=== PATIENT | male | born 1980 | race Caucasian/White ===

== ENCOUNTER → 2017-03-10 | Outpatient (CLI) | payer OTHER ==
--- NOTE | 2017-03-10 17:02 | REP ---
RIGHT FINGERS, FOUR VIEWS: HISTORY: Contusion. There is no acute fracture or dislocation. The joint spaces are normal in appearance. There is irregularity of the soft tissue overlying the distal phalange of the third digit. This may represent a laceration. IMPRESSION: There is no acute fracture or dislocation. Signed by Casey Shields MD 03/10/2017 05:04 P
== END ==
LOC: M ADAMS 14:26
PROVIDERS: ATTEND Physician Assistant Medical
DX: S60.131A Contusion of right middle finger with damage to nail, initial encounter (principal); X58.XXXA Exposure to other specified factors, initial encounter; Y92.9 Unspecified place or not applicable; Y93.9 Activity, unspecified; Y99.9 Unspecified external cause status

== ENCOUNTER 2020-04-01 12:08 | Emergency (ER) | payer OTHER ==
[~2020-04-01] VITALS: Ht 177.8 cm; Wt 79.0 kg
[~2020-04-01 12:08] MED LIST: PROT1TAB2 PO; SUCR1SS PO; ZOFR4TAB14 PO
[2020-04-01] MEDS ORDERED: ATROPINE SULF 0.4 MG/ML 1ML VIAL (J0461) IV STA (12:25)
[2020-04-01] MEDS ORDERED: GI COCKTAIL 50ML BTL(HYOSCYAMINE/MAALOX/LIDOCAINE VISCOUS)(1:3:1) PO ONE (12:30)
[2020-04-01] MEDS ORDERED: NS 1,000 ML IV ONE (12:30)
[2020-04-01] MEDS ORDERED: PANTOPRAZOLE 40MG VIAL (C9113 PER 1) IV ONE (12:30)
[2020-04-01 12:34] LABS: BASO % 0.2 % (0.0-1.0); HEMATOCRIT 47.2 % (42.0-52.0); HEMOGLOBIN 15.3 g/dl (13.5-17.5); LYMPH # 1.2 10^3/uL (1.5-5.0); LYMPH % 7.4 % (24.0-44.0); MEAN CORPUSCULAR HEMOGLOBIN 30.7 pg (27.0-33.0); MEAN CORPUSCULAR HGB CONC 32.4 g/dl (32.0-36.5); MEAN CORPUSCULAR VOLUME 94.6 fl (80.0-96.0); MONO # 0.6 10^3/uL (0.0-0.8); MONO % 3.7 % (0.0-5.0); NEUTROPHILS # 13.8 10^3/uL (1.5-8.5); NEUTROPHILS % 88.1 % (36.0-66.0); PLATELET COUNT, AUTOMATED 253 10^3/uL (150-450); RED BLOOD COUNT 4.99 10^6/uL (4.30-6.10); WHITE BLOOD COUNT 15.7 10^3/uL (4.0-10.0)
[2020-04-01 12:47] LABS: INR 1.04; PARTIAL THROMBOPLASTIN TIME 28.5 SECONDS (25.0-38.4); PROTHROMBIN TIME 13.3 SECONDS (11.8-14.0)
[2020-04-01] MEDS: GASTROGRAFIN SOLUTION 30ML PO SCH ×2 (12:51→13:25)
[2020-04-01 13:02] LABS: ALBUMIN 4.5 GM/DL (3.2-5.2); ALT/SGPT 45 U/L (12-78); BILIRUBIN,DIRECT 0.1 MG/DL (0.0-0.2); BILIRUBIN,TOTAL 0.3 MG/DL (0.2-1.0); BLOOD UREA NITROGEN 18 MG/DL (7-18); CALCIUM LEVEL 9.3 MG/DL (8.5-10.1); CARBON DIOXIDE LEVEL 27 MEQ/L (21-32); CHLORIDE LEVEL 106 MEQ/L (98-107); CK-MB VALUE MASS 1.7 NG/ML (<3.6); CPK CREATINE PHOSPHOKINASE 122 U/L (39-308); CREATININE FOR GFR 0.99 MG/DL (0.70-1.30); GLOMERULAR FILTRATION RATE > 60.0 (>60); GLUCOSE, FASTING 133 MG/DL (70-100); LIPASE 68 U/L (73-393); MB/CK RELATIVE INDEX 1.39 (< OR =4); POTASSIUM SERUM 4.6 MEQ/L (3.5-5.1); SODIUM LEVEL 141 MEQ/L (136-145); TOTAL PROTEIN 7.6 GM/DL (6.4-8.2); TROPONIN I < 0.02 NG/ML (< 0.10)
[2020-04-01] MEDS ORDERED: ISOVUE-370 76% 100ML VIAL As Ordered ONE (14:19)
[2020-04-01] MEDS ORDERED: MORPHINE 4 MG/ML 1ML VIAL/SYRINGE (J2270) IV ONE (14:45)
[2020-04-01] MEDS ORDERED: SUCRALFATE SUSP 1GM/10ML UD PO ONE (14:45)
--- NOTE | 2020-04-01 14:49 | REP ---
Clinical: Acute epigastric pain. Technique: Axial contrast enhanced images from the lung bases to the pubic symphysis using oral (per protocol) and 100 ml Isovue 370 intravenous contrast material coronal and sagittal re-formations. Findings: Lung bases demonstrate small 4 mm noncalcified nodule in the right middle lobe (image 4). Liver, spleen, pancreas, gallbladder, bilateral adrenal glands and right kidney are normal. Complete atrophic appearance to the left kidney appears chronic. The enteric system is without obstruction or acute inflammatory process. Normal terminal ileum and appendix are identified in the right lower quadrant. Few scattered sigmoid diverticula noted without acute diverticulitis. Pelvis demonstrates normal bladder and age appropriate prostate/seminal vesicles. No ascites. No free air. No adenopathy. Abdominal aorta and vasculature are relatively normal. Musculoskeletal structures without acute osseous abnormality. Impression: 1. Chronic atrophic appearance to the left kidney with mild hydroureter possibly related to chronic congenital reflux disease or prior chronic obstruction. 2. No acute abdominopelvic pathology appreciated. 3. 4 mm nodule in the right middle lobe. Consider short-term chest CT follow-up. Electronically Signed by Arnoldo Vitale MD 04/01/2020 02:40 P
[2020-04-01] MEDS ORDERED: PROT1TAB2 PO (15:13)
[2020-04-01 15:30] VITALS: BP 175/88
--- NOTE | 2020-04-01 21:10 | ECGEPIP ---
[facility] - ED Test Date: 2020-04-01 Pat Name: KENYON STOVALL Department: Room: - Gender: Male Ems Instructor: golden : 1980 Requested By: MAGUE Almaguer Order Number: [id number] Reading MD: Hina Moses Measurements Intervals [place] Rate: 33 P: 55 SC: 169 QRS: 39 QRSD: 92 T: 48 QT: 456 QTc: 338 Interpretive Statements SINUS BRADYCARDIA INCOMPLETE RIGHT BUNDLE BRANCH BLOCK SIMILAR 09/15/17 Electronically Signed on 04-01-2020 21:09:35 EDT by Hina Moses
--- NOTE | 2020-04-02 14:47 | ED PDOC ---
Post-Departure Follow-Up [facility] faxed formal report of ct abd/p for fu Robert Todd MD April 02, 2020 14:47
[2020-04-11] MEDS ORDERED: ANOR1AER INH (12:14)
== END 2020-04-01 15:35 | disposition home or self-care (01) ==
LOC: M ED 12:08
DX: R10.13 Epigastric pain (principal); N13.4 Hydroureter; N26.9 Renal sclerosis, unspecified; R91.1 Solitary pulmonary nodule; R00.1 Bradycardia, unspecified; R19.7 Diarrhea, unspecified; R11.2 Nausea with vomiting, unspecified; K25.9 Gastric ulcer, unspecified as acute or chronic, without hemorrhage or perforation; K21.9 Gastro-esophageal reflux disease without esophagitis; K29.70 Gastritis, unspecified, without bleeding; F17.200 Nicotine dependence, unspecified, uncomplicated
CPT/HCPCS: 74177; 80047; 80048; 80076; 82550; 82553; 83690; 85025; 85610; 85730; 93005; 93041; 96374; 96375; 99285; C9113; J0461; J2270; Q9963; Q9967

== ENCOUNTER → 2020-04-15 | Outpatient (CLI) | payer OTHER ==
[~2020-04-15] MED LIST changes: +ANOR1AER INH
== END ==
LOC: M LABSMTC 09:51
PROVIDERS: ATTEND Anesthesiology
DX: Z01.818 Encounter for other preprocedural examination (principal); Z11.59 Encounter for screening for other viral diseases
CPT/HCPCS: C9803; U0003

== ENCOUNTER 2020-04-18 09:32 | Day surgery (SDC) | payer OTHER ==
[~2020-04-18] VITALS: Ht 177.8 cm; Wt 78.8 kg
[~2020-04-18 09:32] MED LIST changes: +fentaNYL 100 MCG/2 ML INJECTION (J3010) As Ordered ONE
[2020-04-18] MEDS ORDERED: NS 1,000 ML IV ONE (10:45)
[2020-04-18] MEDS ORDERED: propofoL 200 MG/20 ML VIAL As Ordered ONE (11:02)
[2020-04-18] MEDS ORDERED: LIDOCAINE 2% 100MG/5ML SDV (FOR ANES.) As Ordered ONE (11:02)
--- NOTE | 2020-04-18 11:23 | ROOR ---
Patient Name: Montrell Castillo Procedure Date: 04/18/2020 11:05 AM Date of : 1980 Age: 40 Room: [facility] Gender: Male Note Status: Finalized Procedure: Upper GI endoscopy Indications: Epigastric abdominal pain Providers: Binu Schaffer MD Referring MD: 1. No Referring Physician 1. No Referring Physician, Admin., Binu Schaffer MD Requesting Provider: Medicines: Monitored Anesthesia Care Complications: No immediate complications. Procedure: Pre-Anesthesia Assessment: - Prior to the procedure, a History and Physical was performed, and patient medications and allergies were reviewed. The patient is competent. The risks and benefits of the procedure and the sedation options and risks were discussed with the patient. All questions were answered and informed consent was obtained. Patient identification and proposed procedure were verified by the physician, the nurse and the lathe scalper operator in the endoscopy suite. Mental Status Examination: alert and oriented. Airway Examination: normal oropharyngeal airway and neck mobility. Respiratory Examination: clear to auscultation. CV Examination: normal. Prophylactic Antibiotics: The patient does not require prophylactic antibiotics. Prior Anticoagulants: The patient has taken no previous anticoagulant or antiplatelet agents. ASA Grade Assessment: II - A patient with mild systemic disease. After reviewing the risks and benefits, the patient was deemed in satisfactory condition to undergo the procedure. The anesthesia plan was to use monitored anesthesia care (MAC). Immediately prior to administration of medications, the patient was re-assessed for adequacy to receive sedatives. The heart rate, respiratory rate, oxygen saturations, blood pressure, adequacy of pulmonary ventilation, and response to care were monitored throughout the procedure. The physical status of the patient was re-assessed after the procedure. The Endoscope was introduced through the mouth, and advanced to the second part of duodenum. The upper GI endoscopy was accomplished without difficulty. The patient tolerated the procedure well. Findings: The examined esophagus was normal. Localized mild inflammation characterized by congestion (edema) was found in the cardia. Biopsies were taken with a cold forceps for histology. The examined duodenum was normal. Impression: - Normal esophagus. - Acute gastritis. Biopsied. - Normal examined duodenum. Recommendation: - Await pathology results. - Return to my office in 2 weeks. - Use sucralfate tablets 1 gram PO BID for 4 weeks. Binu Schaffer MD Binu Schaffer MD 04/18/2020 11:22:47 AM Electronically signed by Binu Schaffer MD Number of Addenda: 0 Note Initiated On: 04/18/2020 11:05 AM Estimated Blood Loss: Estimated blood loss was minimal.
[2020-04-18 11:44] VITALS: BP 125/87
== END 2020-04-18 11:46 | disposition home or self-care (01) ==
LOC: M OPP 09:32
PROVIDERS: ATTEND Surgery
DX: K29.00 Acute gastritis without bleeding (principal); R10.13 Epigastric pain; Z79.899 Other long term (current) drug therapy; F17.210 Nicotine dependence, cigarettes, uncomplicated
CPT/HCPCS: 43239; 88305; J3010

== ENCOUNTER → 2020-04-27 | Outpatient (CLI) | payer OTHER ==
[~2020-04-27] MED LIST changes: -fentaNYL 100 MCG/2 ML INJECTION (J3010) As Ordered ONE
== END ==
LOC: M PLALAB 09:35
PROVIDERS: ATTEND Family Medicine
DX: Z13.1 Encounter for screening for diabetes mellitus (principal); Z13.220 Encounter for screening for lipoid disorders

== ENCOUNTER → 2020-04-27 | Outpatient (REF) | payer OTHER ==
[2020-04-27 11:17] LABS: CHOLESTEROL RISK RATIO 3.978 (<5)
[2020-04-27 11:46] LABS: HEMOGLOBIN A1c 5.5 %
== END ==
LOC: M SFHCPLAZ 09:28
PROVIDERS: ATTEND Family Medicine
DX: Z13.1 Encounter for screening for diabetes mellitus (principal); Z13.220 Encounter for screening for lipoid disorders

== ENCOUNTER → 2020-05-01 | Outpatient (CLI) | payer OTHER ==
--- NOTE | 2020-05-01 08:32 | REP ---
Right upper quadrant sonography: History: Epigastric pain. Comparison study: Comparison CT study April 01, 2020. Findings: Scanning through the right upper quadrant of the abdomen demonstrates a normal sized, thin-walled gallbladder without evidence of stone or polyp. Common bile duct is normal measuring 0.5 cm in greatest diameter. No focal liver lesion is seen. Liver size is normal. No pancreatic abnormality is observed. No right renal abnormality is seen. There is no evidence of ascites. The right kidney measures 13.2 x 6.2 x 6.4 cm. Impression: Negative right upper quadrant sonography. Electronically Signed by Williams Jin MD 05/01/2020 08:23 A
== END ==
LOC: M RAD 06:24
PROVIDERS: ATTEND Surgery
DX: R10.13 Epigastric pain (principal)

== ENCOUNTER → 2020-05-03 | Outpatient (CLI) | payer OTHER ==
--- NOTE | 2020-05-03 15:40 | REP ---
REASON: Followup right middle lobe nodules seen in lung base imaging during abdominal and pelvic CT scanning 04/01/2020. There is no mediastinal or hilar adenopathy There are no pleural or pericardial effusions. There is no change in the appearance of the imaged upper abdomen. The imaged osseous structures are within normal limits. Evaluation of the lung rodriguez shows a 5 mm sized nodule in the right lower lobe not imaged on the prior lung base images. There are two nodules in the right middle lobe, one measures 6 mm and the other measures 3 mm. There is a 7 mm sized nodule in the left lower lobe. Superior to this, there is a 4 mm sized nodule. There is a 5 mm sized nodule in the apical posterior segment of the left upper lobe. There is a 5 mm sized nodule in the lingula. Between the aforementioned left lower lobe nodules, there is an additional 3 mm sized nodule. IMPRESSION: There are bilateral upper lobe peripheral pleural blebs. IMPRESSION: 1. Multiple pulmonary nodules as described above. Recommendation for followup will be based on the largest nodule as per the revised Fleischner Society criteria. Recommendation is for a 3-month followup examination. 2. There are some chronic lung field changes as described above. Electronically Signed by Jan Urena DO 05/03/2020 05:05 P
== END ==
LOC: M RAD 14:22
PROVIDERS: ATTEND Internal Medicine Pulmonary Disease
DX: R91.8 Other nonspecific abnormal finding of lung field (principal)

== ENCOUNTER → 2020-08-24 | Outpatient (CLI) | payer OTHER ==
--- NOTE | 2020-08-29 07:59 | REP ---
CT CHEST WITHOUT CONTRAST HISTORY: Other nonspecific abnormal finding of lung field. COMPARISON: Chest CT study 05/03/2020. CT FINDINGS: There are scattered bilateral subcentimeter pulmonary nodules. The nodule previously measured at 7 mm in the left lower lobe appears actually less prominent. There is an adjacent vessel 4 mm. In any event, there is no evidence of progression in this or any of the other nodules. No new mass or infiltrate is seen. There is some vascular calcification. No hilar or mediastinal mass or adenopathy is observed. There is profound atrophy of the left kidney and it contains a couple of calcifications. There are normal adrenal glands bilaterally. IMPRESSION: Lung-RADS Category [address] study suggested in one year. MTDD
== END ==
LOC: M RAD 09:20
PROVIDERS: ATTEND Internal Medicine Pulmonary Disease
DX: R91.8 Other nonspecific abnormal finding of lung field (principal)

== ENCOUNTER → 2020-11-30 | Outpatient (CLI) | payer OTHER ==
--- NOTE | 2020-11-30 09:31 | REPPI ---
INDICATION: ACUTE RIGHT SIDED LOW BACK PAIN WITHOUT SCIATICA COMPARISON: None. TECHNIQUE: AP, lateral, flexion/extension, bilateral oblique, and coned-down views. FINDINGS: Alignment and lordosis maintained. No acute fracture/compression injury or subluxation. Early moderate degenerative changes at L5-S1 include endplate sclerosis, marginal spurring and facet arthropathy with disc space narrowing. Foraminal narrowing at the L5-S1 level cannot be excluded as well. Mild age-related changes noted throughout the remainder of the visualized lumbar spine. No evidence for spondylolysis or spondylolisthesis. IMPRESSION: Moderate degenerative changes at the L5-S1 level. <Electronically signed by Arnoldo Vitale > 11/30/20 [id number]
== END ==
LOC: M PLARAD 08:24
PROVIDERS: ATTEND Family Medicine
DX: M51.37 Other intervertebral disc degeneration, lumbosacral region (principal)

== ENCOUNTER → 2021-02-15 | Outpatient (CLI) | payer OTHER ==
--- NOTE | 2021-02-15 13:46 | REP ---
INDICATION: ABN FINDING OF LUNG. COMPARISON: 08/24/2020, 05/03/2020 CT. TECHNIQUE: Noncontrast scanning through the chest with coronal and sagittal reconstructions. FINDINGS: Is a stable 5 mm nodule lateral basal segment right lower lobe on image 60. 5 mm nodule seen on image 81 in the medial segment right middle lobe is essentially unchanged. Smaller 3 mm nodule noted on the 05/03/2020 study cannot be seen. There is a 4 mm nodule in the left upper lung zone on image 62 unchanged. 3 mm nodule in the superior segment of the left lower lobe on image 62 is again seen. I do not see other or new nodules, acute infiltrate, pleural thickening or calcified pleural plaque. No effusion or dense consolidation. No pneumothorax or pneumomediastinum. Heart is not enlarged. The aorta is without aneurysm. There is no pathologic sized adenopathy in the mediastinum. The krishna, axilla and supraclavicular region show no pathologic size nodes. Tracheal airway intact. The sternum, manubrium, clavicles, AC joints, glenohumeral joints, ribs, scapulae and spine are without fracture or acute finding there marginal osteophytes throughout the upper to mid/lower thoracic spine. No compression deformity or destructive lesions. Upper abdomen shows profound atrophy of the left kidney and compensatory hypertrophy of the right unchanged. Stomach filled with a recent meal and contraction of the gallbladder noted. Adrenal glands normal. No hiatal hernia. IMPRESSION: 1. Multiple bilateral small pulmonary nodules, stable. All of them are the same size or a little smaller. No new nodules or other new findings in the lung rodriguez. The heart, mediastinal and hilar contours and other structures grossly unremarkable in the chest. 2. Severe chronic renal atrophy on the left with compensatory hypertrophy of the right kidney. Follow-up recommended as clinically indicated. <Electronically signed by Adiel Lentz > 02/15/21 1547
== END ==
LOC: M RAD 10:22
PROVIDERS: ATTEND Internal Medicine Pulmonary Disease
DX: R91.8 Other nonspecific abnormal finding of lung field (principal)

== ENCOUNTER → 2021-03-12 | Outpatient (CLI) | payer OTHER ==
--- NOTE | 2021-03-12 13:49 | REPPI ---
INDICATION: BACK PAIN WITH SCIATICA. COMPARISON: 11/30/2020. TECHNIQUE: Five views lumbosacral spine. FINDINGS: There is no compression fracture or malalignment. There is mild spurring diffusely. There is mild disc space narrowing at L4-5 with mild subchondral sclerosis. There is moderate disc space narrowing at L5-S1 with mild subchondral sclerosis. There is sclerosis and spurring at the facets of L5-S1. The posterior elements are intact. IMPRESSION: Stable arthritic changes. No compression fracture or malalignment. <Electronically signed by Michael Youngblood > 03/12/21 [id number]
== END ==
LOC: M PLAIMG 12:18
PROVIDERS: ATTEND Student in an Organized Health Care Education/Training Program
DX: M54.40 Lumbago with sciatica, unspecified side (principal); M77.8 Other enthesopathies, not elsewhere classified; G95.89 Other specified diseases of spinal cord

== ENCOUNTER → 2021-04-19 | Outpatient (CLI) | payer OTHER ==
--- NOTE | 2021-04-19 16:25 | REPVR ---
PROCEDURE INFORMATION: Exam: MR Lumbar Spine Without Contrast Exam date and time: 04/19/2021 12:46 PM Age: 41 years old Clinical indication: Pain; Lumbago with sciatica; Left; Additional info: Back pain lumbar region w/ sciatica TECHNIQUE: Imaging protocol: Multiplanar magnetic resonance images of the lumbar spine without intravenous contrast. COMPARISON: CR SPINE LS COMPLETE 03/12/2021 12:56 PM FINDINGS: Vertebrae: Vertebral body heights are intact. Alignment is maintained. There appears to be a chronic right-sided pars defect at L5. Spinal cord: The conus is unremarkable in appearance, with its tip at the T12-L1 level. Multilevel findings: There are varying degrees of disc desiccation indicating intervertebral disc degeneration. L1-L2: No significant disc displacement. L2-L3: No significant disc displacement. There is small fluid in the facet joints. L3-L4: Small diffuse bulge combining with facet arthrosis to lead to very mild bilateral neural foraminal narrowing without significant spinal stenosis. There is small fluid in the facet joints. L4-L5: Diffuse bulge with a left paracentral annular tear combining with facet arthrosis and ligamentum flavum hypertrophy to lead to mild right and [id number] left neural foraminal narrowing with very mild right and mild left lateral recess narrowing and borderline central canal stenosis. L5-S1: Disc osteophyte complex with a superimposed broad-based right paracentral protrusion combining with facet arthrosis and ligamentum flavum hypertrophy to lead to mild right and moderate left neural foraminal narrowing with severe right and mild left lateral recess narrowing and borderline central canal stenosis. Soft tissues: Unremarkable. Kidneys and ureters: It appears that the partially included left kidney is markedly atrophic. IMPRESSION: Multilevel disc desiccation indicating intervertebral disk degeneration with disc displacements as described. COMMENTS: If surgery is considered, recommend level confirmation. Electronically signed by: Woo Leon On 04/19/2021 16:24:55 PM
== END ==
LOC: M PLARAD 12:44
PROVIDERS: ATTEND Student in an Organized Health Care Education/Training Program
DX: M51.26 Other intervertebral disc displacement, lumbar region (principal); M51.36 Other intervertebral disc degeneration, lumbar region

== ENCOUNTER 2021-05-13 11:26 | Emergency (ER) | payer OTHER ==
[~2021-05-13] VITALS: Ht 177.8 cm; Wt 82.7 kg
[2021-05-13] MEDS ORDERED: ACET1TAB55 PO (11:51)
[2021-05-13] MEDS ORDERED: AMIT50TA PO (11:51)
--- NOTE | 2021-05-13 12:21 | REP ---
INDICATION: pain/swelling after trauma COMPARISON: None. TECHNIQUE: AP, lateral, bilateral oblique views left 2nd and 3rd toes. FINDINGS: The osseous structures and joint spaces are intact and normal. There is no evidence for acute fracture or dislocation. Surrounding soft tissues are unremarkable. No subcutaneous emphysema or radiodense foreign body. IMPRESSION: . No obvious acute fracture or dislocation. <Electronically signed by Arnoldo Vitale > 05/13/21 [id number]
--- NOTE | 2021-05-13 12:27 | REP ---
INDICATION: STEPPEN ON BY COW. COMPARISON: None. FINDINGS: The joint spaces are symmetric and relatively well maintained. There is no evidence of acute fracture or destructive osseous lesion. IMPRESSION: Negative. <Electronically signed by Jan Urena > 05/13/21 [id number]
[2021-05-13 14:03] VITALS: BP 132/84
== END 2021-05-13 13:59 | disposition home or self-care (01) ==
LOC: M ED 11:26
DX: S90.122A Contusion of left lesser toe(s) without damage to nail, initial encounter (principal); X58.XXXA Exposure to other specified factors, initial encounter; Y92.89 Other specified places as the place of occurrence of the external cause; Y93.9 Activity, unspecified; Y99.0 Civilian activity done for income or pay; M54.9 Dorsalgia, unspecified; F17.200 Nicotine dependence, unspecified, uncomplicated

== ENCOUNTER → 2021-09-25 | Outpatient (CLI) | payer OTHER ==
[~2021-09-25] MED LIST changes: +ACET1TAB55 PO; +AMIT50TA PO
--- NOTE | 2021-09-25 11:44 | REP ---
INDICATION: ABNORMAL FINDING OF LUNG FIELD. COMPARISON: 02/15/2021, 08/24/2020, 05/03/2020. TECHNIQUE: Noncontrast scanning through the chest with coronal and sagittal reconstructions. FINDINGS: Of the lung rodriguez are well inflated. 5 mm nodule laterally in the right lower lobe on image 62 is unchanged. 6 mm nodule in the lateral segment right middle lobe on image 81 is not really changed. On image 65 in the lateral basal segment left lower lobe 3 mm nodule is stable. There is a stable 3 mm nodule on image 62 in the superior lingular segment of the left upper lobe. It is just less than 4 mm. Have not discerned other new or suspicious nodules or interval change. No pleural thickening, calcified pleural plaque, pleural effusion or acute infiltrate. No parenchymal mass. There is no pneumothorax. The heart is not enlarged. There is no pericardial thickening or effusion. The aorta is without aneurysm. No pathologic sized mediastinal, hilar, axillary or supraclavicular adenopathy. Marginal osteophytes at multiple thoracic levels without compression fracture or destructive lesion. The visualized structures in the bony chest are stable and without acute finding. The upper abdomen is unchanged with profound atrophy of the left kidney, compensatory hypertrophy on the right and with a few punctate pyramidal stones on the right side visible in the upper pole the kidney that is included in this field of view. No hydronephrosis. The aorta is intact. That portion of liver, gallbladder, pancreas and bowel loops included were unremarkable. No hiatal hernia. Spleen unremarkable. IMPRESSION: 1. Multiple bilateral small pulmonary nodules, stable. There all the same size and I see no new nodules or other new, suspicious findings. Any decision for further follow-up should be based on your clinical findings and his risk assessment. <Electronically signed by Adiel Lentz > 09/25/21 2080
== END ==
LOC: M PLAIMG 09:53
PROVIDERS: ATTEND Internal Medicine Pulmonary Disease
DX: R91.8 Other nonspecific abnormal finding of lung field (principal)

== ENCOUNTER → 2022-05-06 | Outpatient (REF) | payer OTHER ==
[2022-05-06 13:46] LABS: SOURCE, BODY FLUID LFT KNEE; SYNOVIAL FLUID COLOR PALE YELLOW (COLORLESS)
[2022-05-06 13:49] LABS: CRYSTALS, BODY FLUID NONE SEEN (NONE SEEN); SOURCE, BODY FLUID CRYSTALS LFT KNEE
[2022-05-06 14:17] LABS: SOURCE, BODY FLUID GLUCOSE LFT KNEE
== END ==
LOC: M LAB REF 13:07
PROVIDERS: ATTEND Physician Assistant Surgical
DX: M25.562 Pain in left knee (principal)

== ENCOUNTER → 2022-05-06 | Outpatient (CLI) | payer OTHER ==
[2022-05-06 12:21] LABS: BASO % 0.2 % (0.0-1.0); EOS # 0.1 10^3/uL (0.0-0.5); EOS % 0.7 % (0.0-3.0); HEMATOCRIT 43.1 % (42.0-52.0); HEMOGLOBIN 14.4 g/dl (13.5-17.5); LYMPH # 2.2 10^3/uL (1.5-5.0); LYMPH % 16.8 % (24.0-44.0); MEAN CORPUSCULAR HEMOGLOBIN 30.6 pg (27.0-33.0); MEAN CORPUSCULAR HGB CONC 33.4 g/dl (32.0-36.5); MEAN CORPUSCULAR VOLUME 91.7 fl (80.0-96.0); MONO # 0.7 10^3/uL (0.0-0.8); MONO % 5.6 % (2.0-8.0); NEUTROPHILS # 9.7 10^3/uL (1.5-8.5); NEUTROPHILS % 76.3 % (36.0-66.0); PLATELET COUNT, AUTOMATED 348 10^3/uL (150-450); WHITE BLOOD COUNT 12.8 10^3/uL (4.0-10.0)
[2022-05-06 12:56] LABS: ERYTHROCYTE SEDIMENTATION RATE 21 mm/hr (0-15)
[2022-05-06 13:33] LABS: C REACTIVE PROTEIN QUANTITATIV 1.31 MG/DL (0.00-0.30); RHEUMATOID FACTOR QUANT < 10.0 IU/ML (<15.0); URIC ACID 4.9 MG/DL (3.5-7.2)
[2022-05-07 14:08] LABS: ANTINUCLEAR ANTIBODIES DIRECT Negative (Negative)
== END ==
LOC: M LAB 11:47
PROVIDERS: ATTEND Physician Assistant Surgical
DX: M25.562 Pain in left knee (principal)

== ENCOUNTER → 2022-10-08 | Outpatient (CLI) | payer OTHER | LOC: M PLAIMG 10:04 | PROVIDERS: ATTEND Internal Medicine Pulmonary Disease | DX: R91.8 Other nonspecific abnormal finding of lung field (principal); N26.1 Atrophy of kidney (terminal) ==

== ENCOUNTER → 2023-11-19 | Outpatient (CLI) | payer OTHER | LOC: M RAD 07:08 | PROVIDERS: ATTEND Internal Medicine Pulmonary Disease | DX: R91.1 Solitary pulmonary nodule (principal) ==

== ENCOUNTER 2025-08-21 09:12 | Emergency (ER) | payer OTHER ==
[~2025-08-21] VITALS: Ht 177.8 cm; Wt 87.9 kg
[2025-08-21 09:16] VITALS: TEMP 98.6
[2025-08-21 11:34] LABS: KETONE, URINE AUTO RFX NEGATIVE (NEGATIVE); MUCUS, URINE RFX SMALL (NEGATIVE); RBC, URINE AUTO RFX TNTC /HPF (0-3); SQUAM EPITHELIAL CELL UR AURFX 0 /HPF (0-6)
[2025-08-21 11:55] LABS: LEUKOCYTE ESTERASE UR AUTO RFX 2+ (NEGATIVE); NITRITE, URINE AUTO RFX POSITIVE (NEGATIVE); WBC, URINE AUTO RFX TNTC /HPF (0-3)
[2025-08-21 12:38] LABS: Trichomonas vaginalis (AMP) NOT DETECTED (NEGATIVE)
[2025-08-21 13:01] LABS: GC DNA AMPLIFICATION NEGATIVE (NEGATIVE)
[2025-08-21] MEDS: KETOROLAC 30 MG/ML 1 ML VIAL IV ONE (13:28)
[2025-08-21 13:42] LABS: BASO # 0.0 10^3/uL (0.0-0.2); BASO % 0.1 % (0.0-1.0); EOS # 0.0 10^3/uL (0.0-0.5); EOS % 0.0 % (0.0-3.0); LYMPH # 1.3 10^3/uL (1.5-5.0); LYMPH % 6.5 % (24.0-44.0); MONO # 1.6 10^3/uL (0.0-0.8); MONO % 7.7 % (2.0-8.0); NEUTROPHILS # 17.2 10^3/uL (1.5-8.5); NEUTROPHILS % 85.3 % (36.0-66.0); PLATELET COUNT, AUTOMATED 276 10^3/uL (150-450)
[2025-08-21 14:08] LABS: CALCIUM LEVEL 9.6 MG/DL (8.5-10.1); CARBON DIOXIDE LEVEL 26 MMOL/L (20-31); CHLORIDE LEVEL 99 MMOL/L (98-107); CREATININE FOR GFR 0.92 MG/DL (0.70-1.30); GLOMERULAR FILTRATION RATE > 90.0 (>60); POTASSIUM SERUM 3.8 MMOL/L (3.5-5.1); SODIUM LEVEL 137 MMOL/L (136-145)
[2025-08-21 14:38] VITALS: BP 142/95; O2SAT 100
[2025-08-21] MEDS ORDERED: LEVO1TAB39 PO (15:20)
[2025-08-21 15:40] LABS: HIV 1&2 SCREEN NEGATIVE (NEGATIVE)
== END 2025-08-21 14:38 | disposition left against medical advice (07) ==
LOC: M ED 09:12
DX: N45.1 Epididymitis (principal); Z53.9 Procedure and treatment not carried out, unspecified reason; M54.50 Low back pain, unspecified; Z79.899 Other long term (current) drug therapy
CPT/HCPCS: 76870; 80048; 81001; 85025; 86780; 87088; 87186; 87389; 87661; 87810; 87850; 93976; 96374; 99284; J1885

== ENCOUNTER → 2025-10-24 | Outpatient (CLI) | payer OTHER ==
[~2025-10-24] MED LIST changes: +LEVO1TAB39 PO
== END ==
LOC: M RAD 15:40
PROVIDERS: ATTEND Specialist
DX: N43.3 Hydrocele, unspecified (principal)